=== PATIENT | female | born 1990 | race Caucasian/White ===

== ENCOUNTER 2017-02-01 16:44 | Emergency (ER) | payer OTHER ==
--- NOTE | ~2017-02-01 | CT2 ---
[facility] A Service of [facility] RADIOLOGY TEXT RESULTS PATIENT: FLORENCIO JESUS LOCATION: SED : 88 UNIT #: [id number] AGE: [address]: Ankit Farr MD SEX: F ORDER DR: [id number] [place] [id number] E MR#: [id number] #: [id number] NAME: FLORENCIO JESUS. : 1990 SEX: F STUDY DATE/TIME: 02/01/2017 16:59 UNIT: SED ROOM: STUDY DESCRIPTION: CT Abd and Pelv W Cont Attending Physician: Ankit Farr M.D. Ordering Physician: Ankit Farr M.D. Primary Care Physician: Anuel Jamil D.O. MEDICAL IMAGING REPORT This report is preliminary unless electronic signature is present. EXAM CT of the abdomen and pelvis with IV contrast media HISTORY Right side abdominal pain, right lower quadrant pain for 2 hours. TECHNIQUE Transaxial imaging of the abdomen and pelvis was then IV contrast media. This CT exam was performed with one or more of the following radiation dose reduction techniques: automatic exposure control, adjustment of mA and/or kV according to patient size, and iterative reconstruction. FINDINGS Lung bases in this patient are normal. The liver, spleen, gallbladder, pancreas, adrenal glands and both kidneys are normal. No dilated or thickened loops of bowel are seen. The appendix is normal. There is some inflammation in the right lower quadrant. There is an irregular cyst in the right adnexa measuring 2.2 cm with surrounding edema and there is some free fluid the cul-de-sac. Uterus appears unremarkable. There are no other adnexal masses. CONCLUSION 2.2 cm irregular cyst in the right adnexa. There is free fluid present. There is some inflammation present. The appendix itself appears normal. I think this most likely represents a recent ovarian cyst rupture. CT abdomen and pelvis is otherwise normal. Dictated by... Rocky Douglas M.D. THIS IS AN ELECTRONICALLY VERIFIED REPORT [facility] A Service of [facility] RADIOLOGY TEXT RESULTS PATIENT: FLORENCIO JESUS LOCATION: [facility] : [birth year] UNIT #: [id number] AGE: [address]: Ankit Farr MD SEX: F ORDER DR: Rocky Douglas M.D. at 02/05/2017 5:10 PM Maicol TD: 02/02/2017 07:25 JOB #: [id number] MEDICAL IMAGING REPORT
[2017-02-01 15:39] LABS: URINE APPEARANCE CLEAR; URINE BILIRUBIN NEG (NEG); URINE BLOOD NEG (NEG); URINE COLOR YELLOW; URINE GLUCOSE NEG (NORM); URINE KETONE NEG (NEG); URINE LEUKOCYTE ESTERASE NEG (NEG); URINE NITRATE NEG (NEG); URINE PROTEIN NEG (NEG); URINE SOURCE CLEAN CATCH; URINE UROBILINOGEN 0.2 MG/DL (NORM)
[2017-02-01 15:41] LABS: MICRO INDICATED? NO
[2017-02-01 15:59] LABS: BASOPHIL% 0.3 % (0-2.5); EOSINOPHIL% 0.4 % (0.0-7.0); HEMATOCRIT 40.7 % (35.0-45.0); HEMOGLOBIN 13.6 gm/dL (12.0-16.0); LYMPHOCYTE# 1.6 X10e3 (1.0-3.5); LYMPHOCYTE% 26.4 % (17.0-45.0); MEAN CELL VOLUME 94.9 FL (83-96); MEAN CORPUSCULAR HEMOGLOBIN 31.8 PG (28-34); MEAN CORPUSCULAR HGB CONC 33.5 g/dL (30-36); MEAN PLATELET VOLUME 8.4 FL (6.5-11.5); MONOCYTE# 0.3 X10e3 (0-1.0); MONOCYTE% 5.6 % (3.0-12.0); NEUTROPHIL# 4.1 X10e3 (1.5-7.1); NEUTROPHIL% 67.3 % (40-75); PLATELET COUNT 141 X10e3 (140-420); RED BLOOD COUNT 4.29 X10e (3.90-5.30); WHITE BLOOD COUNT 6.2 X10e3 (4.0-10.5)
[2017-02-01 16:02] LABS: DIFF IND NO
[2017-02-01 16:18] LABS: ALBUMIN SERUM 4.6 g/dL (3.5-5.0); ALKALINE PHOSPHATASE 34 U/L (32-92); ALT (SGPT) 9 U/L (10-40); AMYLASE 26 U/L (0-46); AST (SGOT) 16 U/L (10-42); BILIRUBIN,TOTAL 0.8 mg/dL (0.2-2.0); BLOOD UREA NITROGEN 13 mg/dL (9-23); BUN/CREATININE RATIO 18.57; CALCIUM SERUM 9.6 mg/dL (8.4-10.2); CARBON DIOXIDE 27 mmol/L (22-31); CHLORIDE 103 mmol/L (100-111); CREATININE SERUM 0.7 mg/dL (0.6-1.4); GLOM FILT RATE Estimated ABOVE60 mL/min (>60); GLUCOSE FASTING 89 mg/dL (70-110); LIPASE 41 U/L (22-51); POTASSIUM 3.8 mmol/L (3.5-5.1); PROTEIN TOTAL SERUM 7.4 g/dL (6.0-8.3); SODIUM 137 mmol/L (135-145)
[~2017-02-01 16:44] MED LIST: ALBUTEROL 0.5ML INH; AUGMENTIN875 M1 PO; BENTYL20 M1 PO; BENZONATATE PO; CYMBALTA PO; MOTRIN400 M1 PO; NO MEDICATIONS; PREDNISONE PO; PRENATAL1 TA1 PO; PROTONIX20 MG; TYLENOL #3 PO; VOLTAREN50 MG PO; ZOFRAN; ZOFRAN ODT4 MG PO
[2017-02-01 16:48] LABS: AMPHETAMINE NEG (NEG); BARBITURATES NEG (NEG); BENZODIAZEPINES NEG (NEG); COCAINE NEG (NEG); MARIJUANA POS (NEG); OPIATES NEG (NEG); TRICYCLIC ANTIDEPRESSANTS NEG (NEG); U METHADONE NEG (NEG)
== END 2017-02-01 18:02 | disposition home or self-care (01) ==
LOC: SED 16:44
PROVIDERS: Emergency Medicine
DX: N83.201 Unspecified ovarian cyst, right side (principal); F32.9 Major depressive disorder, single episode, unspecified; F17.210 Nicotine dependence, cigarettes, uncomplicated
CPT/HCPCS: 36415; 74177; 80053; 80307; 81003; 82150; 83690; 84703; 85025; 96361; 96374; 96375; 99284; J2270; J2405; Q9967